=== PATIENT | male | born 1970 | race Caucasian/White ===

== ENCOUNTER 2018-12-13 09:44 | Day surgery (SDC) | payer BC ==
[2018-12-12 08:25] VITALS: BMI 43.0
[~2018-12-13 09:44] MED LIST: LACTATED RINGERS 1,000 ML IV SCH; LIDOCAINE 1% 20 ML VIAL (10MG/ML) FOR IV START INTRADERMA PRN; METOCLOPRAMIDE 5 MG/ML 2 ML VIAL IVP PRN; ONDANSETRON 4 MG/2 ML VIAL IVP PRN
[2018-12-13 10:31] VITALS: RESP 16; TEMP 98.3
[2018-12-13] MEDS ORDERED: LIDOCAINE 1% 20 ML VIAL (10MG/ML) FOR IV START INTRADERMA ONE (10:40)
[2018-12-13] MEDS ORDERED: PROPOFOL 10 MG/ML 20 ML VIAL IV ONE (10:59)
--- NOTE | 2018-12-13 11:09 | P.GSHP ---
History of Present Illness H&P Date: 12/13/18 Chief Complaint: GI bleed This a 48-year-old male with history of GI bleed. Patient rents today for EGD and colonoscopy. Past Medical History Past Medical History: Deep Vein Thrombosis (DVT) Additional Past Medical History / Comment(s): hx blood in stool History of Any Multi-Drug Resistant Organisms: None Reported Past Surgical History: Orthopedic Surgery Additional Past Surgical History / Comment(s): left knee sx Past Anesthesia/Blood Transfusion Reactions: No Reported Reaction Smoking Status: Never smoker Medications and Allergies Home Medications Medication Instructions Recorded Confirmed Type No Known Home Medications 12/12/18 12/13/18 History Allergies Allergy/AdvReac Type Severity Reaction Status Date / Time No Known Allergies Allergy Verified 12/13/18 10:22 Surgical - Exam Vital Signs Temp Pulse Resp BP Pulse Ox 98.3 F 71 16 198/99 96 12/13/18 10:30 12/13/18 10:30 12/13/18 10:30 12/13/18 10:30 12/13/18 10:30 - General well developed, well nourished, no distress - Eyes PERRL - ENT normal pinna - Neck no masses - Respiratory normal expansion - Cardiovascular Rhythm: regular - Abdomen Abdomen: soft, non tender Hernia: none Assessment and Plan Assessment: GI bleed. We'll perform colonoscopy.
--- NOTE | 2018-12-13 11:28 | P.OP ---
Date of Procedure: 12/13/18 Preoperative Diagnosis: GI bleed Postoperative Diagnosis: Mild antral gastritis Internal hemorrhoids Procedure(s) Performed: EGD Colonoscopy Anesthesia: MAC Surgeon: Dong Howell Pathology: other (Antral, esophagus) Condition: stable Disposition: PACU Description of Procedure: The patient's placed on the endoscopy table in the lateral position. He received IV sedation. The gastroscope placed oropharynx passed in the esophagus into the stomach. Scope was then placed through the pylorus. First and second portion of the duodenum appeared normal. Scope was then brought back the antrum was minimal inflamed. A biopsies performed. Scope was then retroflexed the remainder stomach appeared normal. The GE junction was at 47 is. There is no significant hiatal hernia. The distal esophagus appeared mildly inflamed. This was biopsied. The proximal esophagus appeared normal. Scope was brought patient. Next digital rectal exam was performed which revealed internal hemorrhoids. The flexible colonoscope was then placed patient anus passed rotator colon. The ileocecal valve lesions. The cecum, ascending and transverse colon appeared normal. In the descending and; appeared normal. Scope summer back the rectum this appeared normal. Scope was withdrawn from patient and in the anus there were internal hemorrhoids noted. Scope was withdrawn for patient. There is no unsteady GI bleed. It was thought that his GI bleed was due to hemorrhoidal bleeding.
[2018-12-13 11:50] VITALS: BP 169/105; PULSE 65
== END 2018-12-13 12:02 | disposition home or self-care (01) ==
LOC: ORWHC2ENDO 09:44
PROVIDERS: ATTEND Surgery
DX: K29.50 Unspecified chronic gastritis without bleeding (principal); K20.9 Esophagitis, unspecified; K64.8 Other hemorrhoids; K92.2 Gastrointestinal hemorrhage, unspecified; Z86.718 Personal history of other venous thrombosis and embolism; E66.01 Morbid (severe) obesity due to excess calories; Z68.41 Body mass index [BMI] 40.0-44.9, adult
CPT/HCPCS: 88305; 45378; 43239; J2704